=== PATIENT | female | born 1980 | race Caucasian/White ===

== ENCOUNTER 2017-02-07 08:20 | Emergency (ER) | payer SELFPAY ==
--- NOTE | 2017-02-07 15:09 | ER ---
ADMIT: 02/07/2017 RM/LOC: [facility] MR#: [id number] [id number] PAULO SURES[facility] [place] [address] Emergency Room Report SEX: F AGE: 36 : 1980 DATE: 02/07/2017 ADDENDUM: This 36-year-old white female coming with right arm pain. Says, it is better when she holds it up. She has been waking up in middle of the night. She has no trauma. This maybe over use injury or strain since she does do stuff with her arms physically. We are going to put her on prednisone 20 b.i.d. x5 days, see if that helps. I did x-ray of chest, arm, humerus, and elbow; there is no obvious deformity there. There is nothing that just pin points more general in nature. I do not believe this is a cervical disk. She should follow up as needed. CONDITION ON DISCHARGE: Good. Tyler Steinberg MD/ jason JOB #: [id number] CC: Tyler Steinberg MD, Attending Physician Sary Tamez MD, Family Physician
== END 2017-02-07 10:00 | disposition home or self-care (01) ==
LOC: ER 08:20
DX: S46.911A Strain of unspecified muscle, fascia and tendon at shoulder and upper arm level, right arm, initial encounter (principal); S46.311A Strain of muscle, fascia and tendon of triceps, right arm, initial encounter; S56.811A Strain of other muscles, fascia and tendons at forearm level, right arm, initial encounter; F17.200 Nicotine dependence, unspecified, uncomplicated; Z88.2 Allergy status to sulfonamides; X58.XXXA Exposure to other specified factors, initial encounter